=== PATIENT | male | born 1955 | race Caucasian/White ===

== ENCOUNTER 2016-10-16 22:06 | Emergency (ER) | payer OTHER ==
[~2016-10-16] VITALS: Ht 185.4 cm; Wt 93.5 kg
[2016-10-16 22:09] VITALS: Ht 185.4 cm; Wt 93.5 kg
[2016-10-16] MEDS ORDERED: HYDROCODONE/APAP (5/325) TAB PO ONE (23:30)
--- NOTE | 2016-10-16 23:31 | ERD ---
ER Documentation Chief Complaint Date/Time DATE: 10/16/16 TIME: 23:29 Chief Complaint R lower back pain started this am denies urinary symptoms HPI 60-year-old male presents to emergency department for complaints of right lower back pain and left lower back pain started this morning, started with right lower back pain radiating to the left lower back, is worse upon movement, 8/10 scale, sharp pains. Patient denies any trauma in the back. Patient denies any incontinence. Patient denies any fever or chills. Patient denies any nausea vomiting. Patient denies any diarrhea or constipation. Patient did not take any medications to help with symptoms. ROS All systems reviewed and are negative except as per history of present illness. Medications Home Meds Reported Medications [none] Unknown Strength No Conflict Check 10/16/16 Allergies Allergies: Coded Allergies: No Known Allergy (Unverified , 10/16/16) PMhx/Soc Medical and Surgical Hx: pt denies Medical Hx, pt denies Surgical Hx FmHx Family History: No coronary disease, No diabetes, No other Physical Exam Vitals Vital Signs Date Time Temp Pulse Resp B/P Pulse Ox O2 Delivery O2 Flow Rate FiO2 10/16/16 22:09 97.4 63 20 118/74 96 Physical Exam GENERAL: The patient is well developed and appropriate for usual state of health, in no apparent distress. CHEST: Clear to auscultation bilaterally. There are no rales, wheezes or rhonchi. HEART: Regular rate and rhythm. No murmurs, clicks, rubs or gallops. No S3 or S4. ABDOMEN: Soft, nontender and nondistended. Good bowel sounds. No rebound or guarding. No gross peritonitis. No gross organomegaly or masses. No Pablo sign or McBurney point tenderness. BACK: No midline or flank tenderness. Able to do full range of motion of the lumbar spine without any restriction but with pain. EXTREMITIES: Equal pulses bilaterally. There is no peripheral clubbing, cyanosis or edema. No focal swelling or erythema. Full range of motion. Grossly neurovascularly intact. NEURO: Alert and oriented. Cranial nerves 2-12 intact. Motor strength in all 4 extremities with 5/5 strength. Sensation grossly intact. Normal speech and gait. SKIN: There is no apparent rash or petechia. The skin is warm and dry. HEMATOLOGIC AND LYMPHATIC: There is no evidence of excessive bruising or lymphedema. No gross cervical, axillary, or inguinal lymphadenopathy. Results 24 hrs Laboratory Tests Test 10/17/16 01:51 Bedside Urine pH (LAB) 5.5 Bedside Urine Protein (LAB) 1+ Bedside Urine Glucose (UA) Negative Bedside Urine Ketones (LAB) Negative Bedside Urine Blood Negative Bedside Urine Nitrite (LAB) Negative Bedside Urine Leukocyte Esterase (L Negative Current Medications Medications (Trade) Dose Ordered Sig/Jim Route PRN Reason Start Time Stop Time Status Last Admin Dose Admin Acetaminophen/ Hydrocodone Bitart (Elma (5/325)) 1 tab ONCE ONCE PO 10/16/16 23:30 10/16/16 23:31 DC 10/16/16 23:15 Patient was given medication for pain here in emergency department, after treatment, patient verbalized feeling much better. Patient's pain is improved. PROCEDURE: CT abdomen and pelvis without intravenous contrast. CLINICAL INDICATION: Right flank pain. TECHNIQUE: CT of the abdomen/pelvis was performed utilizing axial images with reconstructions in sagittal and coronal planes. The administered radiation dose is CTDI 16.8 mGy, DLP 1087 mGy-cm. COMPARISON: No pertinent prior examinations were submitted for comparison. FINDINGS: Visualized Chest: Calcified granulomas are noted within the left lower lobe. Abdomen: The liver, spleen, pancreas, gallbladder,and adrenal glands are unremarkable. The kidneys are without hydronephrosis. No definite urinary calculi are seen. There is no evidence of bowel obstruction. The appendix is normal. No intra- abdominal free air is seen. Numerous diverticula are noted along the sigmoid colon without evidence of diverticulitis. There is no evidence of intra-abdominal adenopathy or free fluid. A tiny fat containing periumbilical hernia is noted. Pelvis: There is no evidence of pelvic adenopathy or free fluid. The prostate and bladder are unremarkable. Osseous structures: Unremarkable. IMPRESSION: No acute findings. No evidence of obstructive uropathy. Sigmoid colonic diverticulosis. RPTAT: HIKT .Emeka Braun MD, Date Time Electronically viewed and signed by .Emeka Braun MD, on 10/17/2016 01:26 .T/ CC: MILAD MILIAN NP Procedures/MDM Medical Decision Making: Patient's pain is most likely consistent with a back pain caused by possible musculoskeletal pain. There is no suspicion for neurovascular compromise. Patient has intact sensation and circulation of the affected extremity. There is low suspicion for septic arthritis. Patient does not have any fever. Radiology exams of the affected area does not show any fracture or dislocation. Incidental finding of diverticulosis noted, no diverticulitis noted Disposition: Home. Patient is given prescription for ibuprofen for mild to moderate pain Elma for severe pain, Flexeril for muscle spasm. Patient was advised to avoid heavy lifting and apply ice on affected area. Patient was advised that if symptoms are worse, numbness, tingling, high fever, unable to move joint, worsening symptoms, to return to emergency department immediately. Otherwise, patient is advised to follow up with the primary care doctor in 5-7 days for reevaluation of symptoms. Departure Diagnosis: Primary Impression: Back pain Back pain location: low back pain Chronicity: acute Back pain laterality: bilateral Sciatica presence: without sciatica Qualified Code: M54.5 - Acute bilateral low back pain without sciatica Additional Impression: Diverticulosis Diverticulosis site: diverticulosis of large intestine Diverticulosis bleeding: diverticulosis without bleeding Qualified Code: K57.30 - Diverticulosis of large intestine without hemorrhage Condition: Stable Patient Instructions: Back Pain (Acute Or Chronic) Additional Instructions: Patient is given prescription for ibuprofen for mild to moderate pain Elma for severe pain, Flexeril for muscle spasm. Patient was advised to avoid heavy lifting and apply ice on affected area. Patient was advised that if symptoms are worse, numbness, tingling, high fever, unable to move joint, worsening symptoms, to return to emergency department immediately. Otherwise, patient is advised to follow up with the primary care doctor in 5-7 days for reevaluation of symptoms. MILAD MILIAN NP Oct 16, 2016 23:31
--- NOTE | 2016-10-17 01:26 | RADRPT ---
PROCEDURE: CT abdomen and pelvis without intravenous contrast. CLINICAL INDICATION: Right flank pain. TECHNIQUE: CT of the abdomen/pelvis was performed utilizing axial images with reconstructions in s agittal and coronal planes. The administered radiation dose is CTDI 16.8 mGy, DLP 1087 mGy-cm. COMPARISON: No pertinent prior examinations were submitted for comparison. FINDINGS: Visualized Chest: Calcified granulomas are noted within the left lower lobe. Abdomen: The liver, spleen, pancreas, gallbladder,and adrenal glands are unremarkable. The kidneys are without hydronephrosis. No definite urinary calculi are seen. There is no evidence of bowel obstruction. The appendix is normal. No intra-abdominal free air is seen. Numerous diverticula are noted along the sigmoid colon without evidence of diverticulitis. There is no evidence of intra-abdominal adenopathy or free fluid. A tiny fat containing periumbilic al hernia is noted. Pelvis: There is no evidence of pelvic adenopathy or free fluid. The prostate and bladder are unremarkable. Osseous structures: Unremarkable. IMPRESSION: No acute findings. No evidence of obstructive uropathy. Sigmoid colonic diverticulosis. RPTAT: HIKT .Emeka Braun MD, Date Time Electronically viewed and signed by .Emeka Braun MD, on 10/17/2016 01:26 .T/
[2016-10-17 01:50] LABS: URINE BLOOD (Dip) POC Negative (NEGATIVE)
[2016-10-17] MEDS ORDERED: IBUP400T22 PO (02:10)
[2016-10-17] MEDS ORDERED: CYCL-319 PO (02:10)
[2016-10-17] MEDS ORDERED: HYDR-906 PO (02:10)
[2016-10-17 02:26] VITALS: BP 112/76; PULSE 67; RESP 16; TEMP 97.6
== END 2016-10-17 02:26 | disposition home or self-care (01) ==
LOC: FTE 22:06
DX: M54.5 Low back pain (principal); K57.30 Diverticulosis of large intestine without perforation or abscess without bleeding
CPT/HCPCS: 74176; 81003; Z7502; Z7610